=== PATIENT | female | born 1995 ===

== ENCOUNTER 2017-01-11 06:30 | Inpatient (IN) | payer OTHER ==
[2017-01-11] MEDS ORDERED: METHYLERGONOVINE 0.2 MG/ML 1 ML AMP IM PRN (07:35)
[2017-01-11] MEDS ORDERED: CARBOPROST TROMETHAMINE 250 MCG/ML 1 ML AMP IM PRN (07:35)
[2017-01-11] MEDS ORDERED: OXYTOCIN 10 UNIT/ML 1 ML VIAL IM PRN (07:35)
[2017-01-11] MEDS ORDERED: PENICILLIN G POTASSIUM 5,000,000 UNIT in DEXTROSE 5% IN WATER 100 ML IVPB STA ×2 (07:35)
[2017-01-11] MEDS ORDERED: LIDOCAINE 1% (PF) 10 MG/ML (30 ML SDV) SQ PRN (07:35)
[2017-01-11] MEDS ORDERED: TERBUTALINE 1 MG/ML VIAL SQ PRN (07:35)
[2017-01-11] MEDS ORDERED: OXYTOCIN 20 UNITS/1000 ML NS 1,000 ML IV SCH ×2 (07:45→15:15)
[2017-01-11] MEDS ORDERED: LACTATED RINGERS 1,000 ML IV SCH (07:45)
[2017-01-11 07:49] VITALS: BMI 26.2
[2017-01-11 08:10] LABS: Basophils # (A) 0.1 k/uL (0-0.2); Basophils % (A) 0 %; CH 26.5; CHCM 30.9; Eosinophils # (A) 0.1 k/uL (0-0.7); Eosinophils % (A) 1 %; HCT 37.6 % (34.0-46.0); HDW 2.93; HGB 11.5 gm/dL (11.4-16.0); Hypochromasia Moderate; Luc # (Auto) 0.18; Luc % (Auto) 1; Lymphocytes # (A) 1.5 k/uL (1.0-4.8); Lymphocytes % (A) 9 %; MCH 26.3 pg (25.0-35.0); MCHC 30.5 g/dL (31.0-37.0); MCV 86.3 fL (80.0-100.0); Mean Platelet Volume 7.3; Monocytes # (A) 0.6 k/uL (0-1.0); Monocytes % (A) 4 %; Neutrophils # (A) 14.9 k/uL (1.3-7.7); Neutrophils % (A) 86 %; RBC 4.36 m/uL (3.80-5.40); RDW 14.2 % (11.5-15.5); WBC 17.4 k/uL (3.8-10.6); WBC (Perox) 18.04
[2017-01-11 08:51] LABS: Glucose,Whole Blood 107 mg/dL (75-99)
[2017-01-11] MEDS ORDERED: SODIUM CHLORIDE 0.9% 100 ML BAG ONE (09:02)
[2017-01-11] MEDS ORDERED: fentaNYL (PF) 50 MCG/ML 5 ML AMP ONE (09:02)
[2017-01-11] MEDS ORDERED: BUPIVACAINE (PF) 0.25% 30 ML VIAL ONE (09:02)
[2017-01-11 09:12] LABS: Appearance,Urine Clear (Clear); Bacteria,Urine Rare /hpf; Bilirubin,Urine Negative (Negative); Glucose,Urine (UA) Negative (Negative); Ketones,Urine 1+ (Negative); Leukocyte Esterase,Urine Trace (Negative); Mucus,Urine Rare /hpf; Nitrite,Urine Negative (Negative); PH, Urine 6.5 (5.0-8.0); Particle Count 2952; Protein,Urine Trace (Negative); RBC,Urine 42 /hpf (0-5); Specific Gravity,Urine 1.016 (1.001-1.035); Squamous Epithelial Cell,Urine 3 /hpf (0-4); UA Billing (MACRO vs. MICRO) MICRO; Urobilinogen,Urine <2.0 mg/dL (<2.0); WBC,Urine 3 /hpf (0-5)
[2017-01-11] MEDS ORDERED: BUPIVACAINE (PF) 0.25% 25 ML, fentaNYL (PF) 200 MCG in SODIUM CHLORIDE 0.9% 71 ML EPIDURAL ONE (09:20)
--- NOTE | 2017-01-11 10:33 | P.HPOB ---
History of Present Illness H&P Date: 01/11/17 Chief Complaint: Labor This is a 21-year-old 1 para 0 woman who reports an estimated due date of 01/13/2017. She is new to the community and reports having had care in [place]. She presents to labor and delivery triage with increasing contractions. Upon initial evaluation in labor and delivery triage she is 4+ centimeters dilated and actively genoveva. She is therefore admitted in labor. The patient is accompanied by her mother. She reports having recently moved to the community from [place]. She reports having had care there but does not bring records with her. She states she knows she is group B strep positive. She reports having ultrasounds throughout the which were "normal". She currently denies leakage of fluids or vaginal bleeding. She has felt good movement. Jordanian is her second language. Review of Systems Constitutional: Denies chills, Denies fever Cardiovascular: Denies chest pain, Denies shortness of breath Respiratory: Denies cough Gastrointestinal: Denies BRBPR Genitourinary: Denies abnormal vaginal bleeding Integumentary: Denies rash Neurological: Denies headaches, Denies visual changes Hematologic/Lymphatic: Denies easy bleeding, Denies easy bruising Past Medical History Past Medical History: No Reported History History of Any Multi-Drug Resistant Organisms: None Reported Past Surgical History: No Surgical Hx Reported Past Anesthesia/Blood Transfusion Reactions: No Reported Reaction Past Psychological History: No Psychological Hx Reported Smoking Status: Never smoker Past Alcohol Use History: None Reported Past Drug Use History: None Reported - Past Family History Mother Family Medical History: No Reported History Medications and Allergies Home Medications Medication Instructions Recorded Confirmed Type No Known Home Medications [No 01/11/17 01/11/17 History Known Home Medications] Allergies Allergy/AdvReac Type Severity Reaction Status Date / Time No Known Allergies Allergy Verified 01/11/17 07:35 Exam - Vital Signs Vital signs: Vital Signs Temp Pulse Resp BP 01/11/17 07:35 97.9 F 97 16 117/72 Intake and Output 01/10/17 01/11/17 01/11/17 22:59 06:59 14:59 Other: Weight 69.4 kg Patient Weight 01/12/17 06:59 Weight 69.4 kg This is a pleasant female who is currently resting comfortably with an epidural anesthetic in place. Her abdomen is visibly gravid with a fundal height consistent with term . On pelvic examination the cervix is 7 cm dilated with a bulging bag of fluids. Artificial rupture of membranes is undertaken and clear fluid is noted. The vertex is in the -2 station and she is 70% effaced. heart tones are overall reassuring on external monitoring and she is genoveva every 1-3 minutes spontaneously. Results Result Diagrams: 01/11/17 07:48 01/11/17 07:48 Abnormal Lab Results - Last 24 Hours (Table) 01/11/17 01/11/17 01/11/17 Range/Units 07:48 08:37 08:46 WBC 17.4 H (3.8-10.6) k/uL MCHC 30.5 L (31.0-37.0) g/dL Neutrophils # 14.9 H (1.3-7.7) k/uL POC Glucose (mg/dL) 107 H (75-99) mg/dL Urine Protein Trace H (Negative) Urine Ketones 1+ H (Negative) Urine Blood Moderate H (Negative) Ur Leukocyte Esterase Trace H (Negative) Urine RBC 42 H (0-5) /hpf Urine Bacteria Rare H (None) /hpf Urine Mucus Rare H (None) /hpf Assessment and Plan (1) 39 weeks gestation of Current Visit: Yes Status: Acute Code(s): Z3A.39 - 39 WEEKS GESTATION OF SNOMED Code(s): 40770934 (2) GBS (group B Streptococcus carrier), +RV culture, currently Current Visit: Yes Status: Acute Code(s): O99.820 - STREPTOCOCCUS B CARRIER STATE COMPLICATING SNOMED Code(s): 17710075 (3) Spontaneous onset of labor Current Visit: Yes Status: Acute Code(s): CJY7549 - SNOMED Code(s): 02932580 (4) Insufficient care Current Visit: Yes Status: Acute Code(s): O09.30 - SUPRVSN OF PREG W INSUFFICIENT ANTENAT CARE, UNSP TRIMESTER SNOMED Code(s): 0319758073106 Plan: This is a 21-year-old 1 para 0 woman at 39-5/7 weeks gestation who presents in active labor. She has no care or records in the area. She was started on group B strep prophylactic antibiotics per her report of GBS positive. Current labs show blood type A+, antibody screen negative. status is currently reassuring by external monitoring and I anticipate normal spontaneous vaginal delivery.
[2017-01-11] MEDS: PENICILLIN G POTASSIUM 2,500,000 UNIT in DEXTROSE 5% IN WATER 100 ML IVPB SCH ×4 (12:25→17:21)
[2017-01-11] MEDS ORDERED: WITCH HAZEL 1 EACH MED..PAD TOPICAL PRN (15:14)
[2017-01-11] MEDS ORDERED: diphenhydrAMINE 50 MG/ML 1 ML VIAL IVP PRN ×2 (15:14)
[2017-01-11] MEDS ORDERED: LANOLIN CREAM 5 GM TUBE TOPICAL PRN (15:14)
[2017-01-11] MEDS ORDERED: ZOLPIDEM 5 MG TAB PO PRN (15:14)
[2017-01-11] MEDS ORDERED: diphenhydrAMINE 50 MG CAP PO PRN (15:14)
[2017-01-11] MEDS ORDERED: MEASLES-MUMPS-RUBELLA VACC/PF 12,500 UNIT/0.5 ML VIAL SQ ONE (15:14)
[2017-01-11] MEDS ORDERED: diphenhydrAMINE 25 MG CAP PO PRN (15:14)
[2017-01-11] MEDS ORDERED: BENZOCAINE/MENTHOL SPRAY 1 GM/SPRAY AEROSOL TOPICAL PRN (15:14)
[2017-01-11] MEDS ORDERED: SIMETHICONE 80 MG CHEWABLE PO PRN (15:14)
[2017-01-11] MEDS ORDERED: HYDROCORTISONE 2.5% RECTAL CREAM 30 GM TUBE RECTAL PRN (15:14)
[2017-01-11] MEDS ORDERED: ACETAMINOPHEN TAB 325 MG TAB PO PRN (15:14)
--- NOTE | 2017-01-11 15:14 | P.PROBDLV ---
Vaginal Delivery Note - . Vaginal Delivery Note: findings: Male infant in the left occiput anterior position with Apgars of 9 at 1 minute and 9 at 5 minutes weighing 7 lbs. 13 oz., 3530 g. Periurethral laceration, second degree perineal laceration, left vaginal sidewall laceration. Intact, three-vessel cord placenta. EBL 250 mL's. Delivery summary: This is a 21-year-old 1 para 0 woman who presented at 39-5/7 weeks gestation with no care in this area. She was in active labor. Following admission she received group B strep prophylactic antibiotics. She received an epidural anesthetic. She underwent artificial rupture of membranes and clear fluid was noted. This she reached complete cervical dilation without incident and commenced pushing with good maternal effort. She did have some moderate tachycardia in the second stage. When she had pushed to she was repositioned, prepped and draped in the dorsal modified Los position. With additional maternal effort the head delivered from the left occiput anterior position followed rapidly by the anterior and posterior shoulders. The rest the infant was delivered onto the field and the nose and mouth were bulb suctioned. The was placed on the maternal abdomen and the cord was clamped and cut. The was taken to the warmer where Apgars were assigned at 9 at 1 minute and 9 at 5 minutes. Attention was returned to the lacerations. She had a periclitoral and periurethral laceration that actually involved the 12 o'clock position of the urethra. Catheter was placed in the vagina to delineate the orifice of the urethra during the repair with 3-0 Vicryl suture. This area was repaired in an interrupted fashion and hemostasis was noted. The second-degree perineal laceration was repaired in the usual fashion using 3-0 Vicryl suture. Additional vaginal bleeding was noted and the vagina was explored and there was noted to be a left vaginal sidewall laceration. This was repaired in a running fashion with 3-0 Vicryl suture. Hemostasis was then noted. an intact, three- vessel cord placenta was then expressed. The uterus was massaged and was noted to be firm below the level of the umbilicus. She had clear urine in the Jean bag. There was decided to leave this in secondary to concerns for swelling after repair of the urethral laceration. All counts were correct and both mother and infant were doing well post delivery in the room.
[2017-01-11] MEDS: IBUPROFEN 600 MG TAB PO PRN ×2 (16:28→23:00)
[2017-01-11 17:50] LABS: Treponemal Ab Non-Reactive (Non-Reactive)
[2017-01-11] MEDS: SENNOSIDES-DOCUSATE SODIUM 1 EACH TAB PO SCH (20:12)
[2017-01-12 05:57] LABS: Basophils # (A) 0.1 k/uL (0-0.2); Basophils % (A) 0 %; CH 25.7; CHCM 30.6; Eosinophils # (A) 0.2 k/uL (0-0.7); Eosinophils % (A) 1 %; HCT 32.5 % (34.0-46.0); HDW 2.81; HGB 10.2 gm/dL (11.4-16.0); Hypochromasia Moderate; Luc # (Auto) 0.13; Luc % (Auto) 1; Lymphocytes % (A) 11 %; MCH 26.5 pg (25.0-35.0); MCHC 31.4 g/dL (31.0-37.0); MCV 84.4 fL (80.0-100.0); Mean Platelet Volume 8.4; Monocytes % (A) 5 %; Neutrophils # (A) 14.9 k/uL (1.3-7.7); Neutrophils % (A) 82 %; RBC 3.85 m/uL (3.80-5.40); RDW 15.2 % (11.5-15.5); WBC 18.2 k/uL (3.8-10.6); WBC (Perox) 19.46
[2017-01-12] MEDS: SENNOSIDES-DOCUSATE SODIUM 1 EACH TAB PO SCH ×2 (09:28→20:43)
[2017-01-12] MEDS: IBUPROFEN 600 MG TAB PO PRN ×2 (09:28→18:49)
--- NOTE | 2017-01-12 10:16 | P.PNOBGVD ---
Subjective - Subjective Principal diagnosis: day #1 Interval history: Has Jean catheter in for urethral tearing. No blood in the urine. Patient reports: Reports appetite normal, Reports voiding normally, Reports pain well controlled, Reports ambulating normally : doing well Objective - Latest Vital Signs Latest vital signs: Vital Signs Temp Pulse Pulse Resp BP Pulse Ox 01/12/17 04:00 98.4 F 92 16 96/58 96 01/12/17 00:00 97.7 F 86 16 102/64 97 01/11/17 20:00 97.9 F 96 16 112/68 97 01/11/17 17:11 98.1 F 78 14 102/55 01/11/17 16:41 97.9 F 74 14 113/59 01/11/17 15:56 84 14 104/60 01/11/17 15:41 79 14 108/56 01/11/17 15:23 89 14 108/61 01/11/17 15:11 98.1 F 110 H 16 110/72 Intake and Output 01/11/17 01/12/17 01/12/17 22:59 06:59 14:59 Intake Total 1000 Output Total 1100 Balance 1000 -1100 Intake: Intake, IV Titration 1000 Amount Oxytocin 20 Units/1000 ml 1000 Ns 1,000 ml @ Per Protocol IV .Q0M [facility] Rx#: [id number] Output: Urine 1100 Other: Voiding Method Indwelling Catheter - Exam Extremities: Present: normal Abdomen: Present: normal appearance, soft Uterus: Present: normal, firm - Labs Labs: Abnormal Lab Results - Last 24 Hours (Table) 01/12/17 Range/Units 05:49 WBC 18.2 H (3.8-10.6) k/uL Hgb 10.2 L (11.4-16.0) gm/dL Hct 32.5 L (34.0-46.0) % Neutrophils # 14.9 H (1.3-7.7) k/uL Assessment and Plan (1) 39 weeks gestation of Current Visit: Yes Status: Acute Code(s): Z3A.39 - 39 WEEKS GESTATION OF SNOMED Code(s): 41135261 (2) GBS (group B Streptococcus carrier), +RV culture, currently Current Visit: Yes Status: Acute Code(s): O99.820 - STREPTOCOCCUS B CARRIER STATE COMPLICATING SNOMED Code(s): 89630855 (3) Spontaneous onset of labor Current Visit: Yes Status: Acute Code(s): LZH5290 - SNOMED Code(s): 53490334 (4) Insufficient care Current Visit: Yes Status: Acute Code(s): O09.30 - SUPRVSN OF PREG W INSUFFICIENT ANTENAT CARE, UNSP TRIMESTER SNOMED Code(s): 4798556235389 (5) Urethral laceration Current Visit: Yes Status: Acute Code(s): S37.33XA - LACERATION OF URETHRA, INITIAL ENCOUNTER SNOMED Code(s): 489206679 (6) Perineal laceration with delivery, second degree Current Visit: Yes Status: Acute Code(s): O70.1 - SECOND DEGREE PERINEAL LACERATION DURING DELIVERY SNOMED Code(s): 8052127 Plan: day #1 status post normal spontaneous vaginal delivery with a urethral laceration. Jean catheter has been kept in place over night for comfort care, this will be discontinued this morning. She is otherwise recovering well and I anticipate discharge home tomorrow. business services associate consult is pending.
[2017-01-12] MEDS: PENICILLIN G POTASSIUM 2,500,000 UNIT in DEXTROSE 5% IN WATER 100 ML IVPB SCH ×2 (22:57)
[2017-01-13 05:13] VITALS: RESP 18
[2017-01-13] MEDS: SENNOSIDES-DOCUSATE SODIUM 1 EACH TAB PO SCH (09:41)
[2017-01-13] MEDS: IBUPROFEN 600 MG TAB PO PRN (09:41)
[2017-01-13 10:15] VITALS: BP 94/45; PULSE 88; TEMP 97.4
--- NOTE | 2017-01-13 12:19 | P.DS ---
Providers Date of admission: 01/11/17 07:16 Expected date of discharge: 01/13/17 Attending physician: Janette Chapman Primary care physician: Stated None - Discharge Diagnosis(es) (1) 39 weeks gestation of Current Visit: Yes Status: Acute (2) GBS (group B Streptococcus carrier), +RV culture, currently Current Visit: Yes Status: Acute (3) Spontaneous onset of labor Current Visit: Yes Status: Acute (4) Insufficient care Current Visit: Yes Status: Acute (5) Urethral laceration Current Visit: Yes Status: Acute (6) Perineal laceration with delivery, second degree Current Visit: Yes Status: Acute Hospital Course: This is a 21-year-old 1 now para 1 woman who presented at 39+ weeks gestation in spontaneous active labor. She had not received care in this area. She reported she was group B strep positive and had an estimated due date of 01/13/2017. Following admission she received group B strep prophylactic antibiotics. She received an epidural anesthetic. She went on to deliver a liveborn male infant over a second-degree perineal laceration. She also had a urethral laceration which was repaired. She did have a Jean catheter left in overnight secondary to concerns for discomfort and swelling. Her Jean catheter was removed on day #1 and she was able to void spontaneously and without difficulty. She had moderate to heavy lochia. By day #2 she continued to do very well. Her lochia had significantly decreased. She was voiding and passing stool without difficulty. Her vital signs were stable and her physical exam is within normal limits. She was therefore discharged home with routine instructions for care and follow-up. The patient does report she'll be returning to her home state of [place] and will likely not follow-up with me in the period. Her son does have bilateral hydroceles therefore circumcision was not done. I also had concerns regarding lack of certain follow-up for the . Plan - Discharge Summary Discharge Rx Participant: Yes New Discharge Prescriptions: New Ibuprofen [Motrin] 600 mg PO Q6HR PRN #30 tab PRN Reason: Mild Pain Or Fever >= 100.5 Discharge Medication List Ibuprofen [Motrin] 600 mg PO Q6HR PRN #30 tab 01/13/17 [Rx] Follow up Appointment(s)/Referral(s): Janette Chapman MD [STAFF PHYSICIAN] - 6 Weeks Care Plan Goals (MU): Follow-up in the office in 6 weeks . Call with any concerning signs or symptoms including heavy vaginal bleeding, severe abdominal pain, fever greater than 101, swelling or redness of the lower extremities, foul vaginal discharge, or signs of depression. Nothing in the vagina for 6 weeks after delivery, specifically no intercourse. Discharge Disposition: HOME SELF-CARE
== END 2017-01-13 13:57 | disposition home or self-care (01) | DRG 775 ==
LOC: FBPOP 06:30 → 4FBP 07:16
PROVIDERS: ADMIT Obstetrics & Gynecology; ATTEND Obstetrics & Gynecology
PROC: 10E0XZZ Delivery of Products of Conception, External Approach (ICD-10-PCS; principal; 2017-01-11)
PROC: 10907ZC Drainage of Amniotic Fluid, Therapeutic from Products of Conception, Via Natural or Artificial Opening (ICD-10-PCS; 2017-01-11)
PROC: 0KQM0ZZ Repair Perineum Muscle, Open Approach (ICD-10-PCS; 2017-01-11)
PROC: 0TQD0ZZ Repair Urethra, Open Approach (ICD-10-PCS; 2017-01-11)
PROC: 10E0XZZ Delivery of Products of Conception, External Approach (ICD-10-PCS; 2017-01-11)
PROC: 3E0R3NZ Introduction of Analgesics, Hypnotics, Sedatives into Spinal Canal, Percutaneous Approach (ICD-10-PCS; 2017-01-11)
PROC: 00HU33Z Insertion of Infusion Device into Spinal Canal, Percutaneous Approach (ICD-10-PCS; 2017-01-11)
DX: O99.824 Streptococcus B carrier state complicating childbirth (principal); O76 Abnormality in fetal heart rate and rhythm complicating labor and delivery; O71.5 Other obstetric injury to pelvic organs; O70.1 Second degree perineal laceration during delivery; Z37.0 Single live birth; Z3A.39 39 weeks gestation of pregnancy
CPT/HCPCS: 80306; 81001; 82947; 85025; 86762; 86780; 86850; 86900; 86901; 87390; 87491; 87591; 88307

== ENCOUNTER 2020-04-18 22:35 | Inpatient (IN) | payer OTHER ==
[2020-04-19] MEDS ORDERED: CARBOPROST TROMETHAMINE 250 MCG/ML 1 ML AMP IM PRN (00:21)
[2020-04-19] MEDS ORDERED: TERBUTALINE 1 MG/ML VIAL SQ PRN (00:21)
[2020-04-19] MEDS ORDERED: LIDOCAINE 0.5% (PF) 5 MG/ML (50 ML SDV) SQ PRN (00:21)
[2020-04-19] MEDS ORDERED: METHYLERGONOVINE 0.2 MG/ML 1 ML AMP IM PRN (00:21)
[2020-04-19] MEDS ORDERED: OXYTOCIN 10 UNIT/ML 1 ML VIAL IM PRN (00:21)
[2020-04-19] MEDS ORDERED: LACTATED RINGERS 1,000 ML IV SCH (00:30)
[2020-04-19 00:33] LABS: Basophils # (A) 0.1 k/uL (0-0.2); Basophils % (A) 1 %; Eosinophils # (A) 0.4 k/uL (0-0.7); Eosinophils % (A) 2 %; HCT 41.9 % (34.0-46.0); HGB 13.2 gm/dL (11.4-16.0); Lymphocytes # (A) 2.5 k/uL (1.0-4.8); Lymphocytes % (A) 13 %; MCH 26.5 pg (25.0-35.0); MCHC 31.6 g/dL (31.0-37.0); MCV 83.9 fL (80.0-100.0); Mean Platelet Volume 8.1; Monocytes # (A) 0.8 k/uL (0-1.0); Monocytes % (A) 4 %; Neutrophils # (A) 14.9 k/uL (1.3-7.7); Neutrophils % (A) 79 %; Platelet Count 290 k/uL (150-450); RBC 4.99 m/uL (3.80-5.40); WBC 18.8 k/uL (3.8-10.6)
--- NOTE | 2020-04-19 01:02 | P.HPOB ---
History of Present Illness H&P Date: 04/19/20 Chief Complaint: I'm here to have my baby This is a 24-year-old 2 para 1001 EDC 04/12/2020 at 41 weeks gestation. Patient presents to triage stating that she wants to have her baby here. She is from [place], and has had several visits with another production machine operator at [facility]. She is having uterine contractions approximately every 5 minutes apart. Fetus is active. She denies vaginal bleeding or fluid leakage. Past medical history is negative. Past surgical history is negative. Current medications vitamins. ALLERGIES none known. Family history patient states is noncontributory. Social history patient is , nonsmoker, denies alcohol or drug use. She is here with her mother. history blood type A+, rubella status immune. Group B strep cultures negative. Gonorrhea and chlamydia cultures, HIV testing, hepatitis B surface antigen, urine culture, Pap smear all negative. On exam patient is 5 foot 4 inches, 150 pounds, vital signs are stable and she is afebrile. The general physical exam is within normal limits. Cervix is 9 cm dilated, 100% effaced, -1 station, vertex presentation. Artificial amniorrhexis reveals meconium-stained fluid. heart rate is in the 140s with frequent accelerations consistent with reactive NST. Impression: 41 week intrauterine , meconium-stained fluid, limited care at a different production machine operator's office at [facility]. Active labor. Plan: Close maternal and surveillance. Patient is requesting epidural, anesthesia team is aware and on way. Anticipate normal spontaneous vaginal delivery. Review of Systems Constitutional: Reports as per HPI Past Medical History Past Medical History: No Reported History History of Any Multi-Drug Resistant Organisms: None Reported Past Surgical History: No Surgical Hx Reported Past Anesthesia/Blood Transfusion Reactions: No Reported Reaction Past Psychological History: No Psychological Hx Reported Smoking Status: Never smoker Past Alcohol Use History: None Reported Past Drug Use History: None Reported - Past Family History Mother Family Medical History: No Reported History Medications and Allergies Home Medications Medication Instructions Recorded Confirmed Type Ibuprofen [Motrin] 600 mg PO Q6HR PRN #30 tab 01/13/17 Rx Allergies Allergy/AdvReac Type Severity Reaction Status Date / Time No Known Allergies Allergy Verified 04/18/20 22:44 Exam Vital Signs Temp Pulse Resp BP Pulse Ox 02/18/21 00:25 99.9 F H 96 16 102/74 04/18/20 22:45 98.5 F 84 16 118/62 99 04/18/20 22:44 98.5 F 84 16 118/62 99 Intake and Output 04/18/20 04/18/20 04/19/20 14:59 22:59 06:59 Other: Weight 68.039 kg 68.039 kg She dictation under HPI please Results Result Diagrams: 04/19/20 00:23 Abnormal Lab Results - Last 24 Hours (Table) 04/19/20 Range/Units 00:23 WBC 18.8 H (3.8-10.6) k/uL Neutrophils # 14.9 H (1.3-7.7) k/uL Assessment and Plan Assessment: 41 week intrauterine , care elsewhere, active labor, meconium- stained fluid. Plan: Continue close maternal and surveillance. Anticipate normal spontaneous vaginal delivery. Time with Patient: Less than 30
--- NOTE | 2020-04-19 01:11 | P.MSEPDOC ---
Presenting Problems - Arrival Data Date of Arrival on Unit: 04/19/20 Time of Arrival on Unit: 00:18 Mode of Transport: Ambulatory - Complaint OB-Reason for Admission/Chief Complaint: Possible Onset of Labor Comment: contractions since 1899 Medical History - Information : 2 Para: 1 Term: 1 : 0 Abortions: Spontaneous or Elective: 0 Number of Living Children: 1 - Gestational Age Gestational Age by ZURDO (wks/days): 41 Weeks and 0 Days Review of Systems - Review of Systems Constitutional: No problems Breast: No problems ENT: No problems Cardiovascular: No problems Respiratory: No problems Gastrointestinal: No problems Genitourinary: No problems Musculoskeletal: No problems Neurological: No problems Skin: No problems Vital Signs - Temperature Temperature: 99.9 F Temperature Source: Temporal Artery Scan - Pulse Right Brachial Pulse Rate: 96 Pulse Assessment Method: Automatic Cuff - Respirations Respiratory Rate: 16 Oxygen Delivery Method: Room Air - Blood Pressure Right Arm Blood Pressure: 102/74 Blood Pressure Mean: 83 Blood Pressure Source: Automatic Cuff Medical Screen Scoring (Pre) - Cervical Exam Dilation: 4-7 cm = 2 Effacement: More than 50% = 2 Membranes: Intact - Uterine Contractions Frequency: > or = 36 weeks =2 Duration: > 40 seconds = 2 Intensity: N/A - Maternal Vital Signs Maternal Temperature: N/A Signs of Preeclampsia: N/A Maternal Respirations: N/A - Assessment - Baby A Baseline FHR: 135 Heart Rate - NICHD Category: Category I (Normal) = 0 NST: Reactive - Total Score - Baby A Total Score - Baby A: 8 - Total Score - Baby B Total Score - Baby B: 8 - Total Score - Baby C Total Score - Baby C: 8 - Level of Risk - Baby A Level of Risk - Baby A: Medium (6-9) - Level of Risk - Baby B Level of Risk - Baby B: Medium (6-9) - Level of Risk - Baby C Level of Risk - Baby C: Medium (6-9) Physician Notification (Pre) - Physician Notified Physician Notified Date: 04/18/20 Physician Notified Time: 23:10 New Order Received: Yes (recheck in an hour) - Notification Comment Comment: Pt is a DOM moved here a month ago from [place], pt has seen Dr Montoya a few times and is supposed to see her again on Thursday. Pt states she comes here to deliver a baby. Disposition - Disposition OB Disposition: Admit, Triage I agree with the RN Medical Screening Exam: Yes Case reviewed; plan agreed upon as documented in EMR&OBIX.: Yes Diagnosis: LOUSE-BORNE TYPHUS
[2020-04-19] MEDS ORDERED: OXYTOCIN 30 UNITS/500 ML NS 30 UNIT in SALINE 1 500ML.BAG IV SCH (02:03)
[2020-04-19] MEDS ORDERED: ZOLPIDEM 5 MG TAB PO PRN (02:20)
[2020-04-19] MEDS ORDERED: diphenhydrAMINE 50 MG CAP PO PRN (02:20)
[2020-04-19] MEDS ORDERED: ACETAMINOPHEN TAB 325 MG TAB PO PRN (02:20)
[2020-04-19] MEDS ORDERED: diphenhydrAMINE 50 MG/ML 1 ML VIAL IVP PRN ×2 (02:20)
[2020-04-19] MEDS ORDERED: diphenhydrAMINE 25 MG CAP PO PRN (02:20)
[2020-04-19] MEDS ORDERED: LANOLIN CREAM 5 GM TUBE TOPICAL PRN (02:20)
[2020-04-19] MEDS ORDERED: diphenhydrAMINE ELIXIR 25 MG/10 ML CUP PO PRN (02:20)
[2020-04-19] MEDS ORDERED: SIMETHICONE 80 MG CHEWABLE PO PRN (02:20)
[2020-04-19] MEDS ORDERED: IBUPROFEN 600 MG TAB PO PRN (02:20)
[2020-04-19] MEDS ORDERED: HYDROCORTISONE 2.5% RECTAL CREAM 30 GM TUBE RECTAL PRN (02:20)
[2020-04-19] MEDS ORDERED: BENZOCAINE/MENTHOL SPRAY 1 GM/SPRAY AEROSOL TOPICAL PRN (02:20)
--- NOTE | 2020-04-19 02:20 | P.PROBDLV ---
Vaginal Delivery Note - . Vaginal Delivery Note: This is a 24-year-old female 2 para 1001 EDC 04/12/2020 at 41 weeks gestation. Patient presented in active labor, care given elsewhere. Blood type is A+, rubella status immune, group B strep cultures negative. Please see dictated history and physical for details. Artificial amniorrhexis revealed dark meconium-stained fluid. Analgesic options were reviewed and declined. Patient became completely dilated at 0154 hours and began the second stage of labor at that time. The oropharynx, Perineal body was prepped and draped in usual sterile fashion. With good maternal expulsive efforts head delivered occiput anterior and restituted accordingly. There was a nuchal cord 1 that was reduced. The left or anterior shoulder was delivered from underneath the pubic symphysis at which time the oropharynx, nasopharynx, and external nares were bulb suctioned on the perineal body. Patient was officially delivered of a liveborn male at 0201 hrs. Umbilical cord was doubly clamped and ligated, he was handed to waiting nurses for evaluation where scores of 9 and 9 at one and 5 minutes respectively were given. Placenta delivered spontaneously, it was inspected and noted to be intact with trivascular cord, and deeply meconium-stained at 0203 hrs. At this time the uterus was massaged. Careful inspection of the cervix, vagina, periurethral, and perirectal areas revealed a small first-degree periclitoral laceration. This was repaired with 1% lidocaine injection and a single [id number]-ce-rrgar suture of 3-0 repeat. weighed 7 lbs. 8 oz. or 3395 g. All sponge needle and enhancement counts are correct at the end of the procedure. Patient is requesting circumcision for her infant son.
[2020-04-19] MEDS: IBUPROFEN 600 MG TAB PO PRN (12:31)
[2020-04-19] MEDS: SENNOSIDES-DOCUSATE SODIUM 1 EACH TAB PO SCH ×2 (12:32→21:40)
[2020-04-20] MEDS: IBUPROFEN 600 MG TAB PO PRN (01:07)
--- NOTE | 2020-04-20 07:50 | P.DS ---
Providers Date of admission: 04/19/20 00:15 Expected date of discharge: 04/20/20 Attending physician: Sri Cali Primary care physician: Stated None Hospital Course: This is a 24-year-old patient from [facility], 2 para 1001, EDC 04/12/2020 at 41 weeks gestation who presented to our institution in active spontaneous labor. She received care from Dr. Montoya at another institution, records were received and reviewed. is remarkable for blood type A positive, rubella status immune, group B strep cultures negative. Please see dictated history and physical for details. Artificial amniorrhexis revealed thick meconium-stained fluid. Patient went on to deliver vaginally a liveborn male infant with scores of 9 and 9 at one and 5 minutes respectively. There was a nuchal cord 1 that was reduced, a small first-degree perineal laceration, and an estimated blood loss of 300 mL's. Infant weighed 7 lbs. 8 oz. or 3395 g. Please see my dictated delivery note for details. The patient and her are doing well. Circumcision has been performed. Patient is voiding, ambulating, passing flatus without difficulty. Vital signs are stable and she is afebrile. Fundus is firm and in the midline, symmetric and 18 week size. Extremities are negative for edema. Breasts are not engorged, breast-feeding is going well. Patient is judged to be in good condition for discharge home. She will follow-up with her own assistant to the president in 6 weeks. I have reminded her no intercourse, tampons or douching. She will use anno-uin-rcdwdrw Advil or Aleve, or Motrin as needed for pain. She will call with any fevers shakes or chills, foul smelling or copious lochia, with the passage of large blood clots, with any pain not alleviated by [id number]-[id number]-[id number] products, or indeed with any concerns. Assessment: Doing well day #1 Patient Condition at Discharge: Good Plan - Discharge Summary Discharge Rx Participant: No New Discharge Prescriptions: No Action Ibuprofen [Motrin] 600 mg PO Q6HR PRN #30 tab PRN Reason: Mild Pain Or Fever >= 100.5 Discharge Medication List Ibuprofen [Motrin] 600 mg PO Q6HR PRN #30 tab 01/13/17 [Rx] Follow up Appointment(s)/Referral(s): Sri Cali MD [STAFF PHYSICIAN] - 6 Weeks Discharge Disposition: HOME SELF-CARE
[2020-04-20 08:08] VITALS: BP 106/60; PULSE 97; RESP 18; TEMP 97.9
[2020-04-20] MEDS: SENNOSIDES-DOCUSATE SODIUM 1 EACH TAB PO SCH (10:44)
== END 2020-04-20 11:25 | disposition home or self-care (01) | DRG 807 ==
LOC: FBPOP 22:35 → 4FBP 04-19 00:15
PROVIDERS: ADMIT Obstetrics & Gynecology; ATTEND Obstetrics & Gynecology
PROC: 10E0XZZ Delivery of Products of Conception, External Approach (ICD-10-PCS; principal; 2020-04-19)
PROC: 0HQ9XZZ Repair Perineum Skin, External Approach (ICD-10-PCS; 2020-04-19)
PROC: 10907ZC Drainage of Amniotic Fluid, Therapeutic from Products of Conception, Via Natural or Artificial Opening (ICD-10-PCS; 2020-04-19)
DX: O48.0 Post-term pregnancy (principal); Z37.0 Single live birth; Z3A.41 41 weeks gestation of pregnancy; O77.0 Labor and delivery complicated by meconium in amniotic fluid; O70.0 First degree perineal laceration during delivery; O69.81X0 Labor and delivery complicated by cord around neck, without compression, not applicable or unspecified
CPT/HCPCS: 59025; 85025; 99213

== ENCOUNTER 2021-09-03 20:56 | Emergency (ER) | payer OTHER ==
[2021-09-03 21:46] VITALS: BP 102/65; PULSE 67; RESP 18; TEMP 98.2
--- NOTE | 2021-09-03 22:07 | XR ---
EXAMINATION TYPE: XR elbow complete RT DATE OF EXAM: 09/03/2021 COMPARISON: NONE HISTORY: Elbow pain TECHNIQUE: 3 views FINDINGS: I see no fracture nor dislocation. Joint spaces are normal. No sign of elbow joint effusion . IMPRESSION: Negative right elbow exam. No fracture.
--- NOTE | 2021-09-03 22:55 | ED ---
Upper Extremity HPI - General Chief Complaint: Extremity Injury, Upper Stated Complaint: Right Elbow Injury Time Seen by Provider: 09/03/21 22:43 Source: patient, RN notes reviewed, old records reviewed Mode of arrival: ambulatory Limitations: no limitations - History of Present Illness Initial Comments: This is a 25-year-old female to the ER today. She presents today for evaluation of right elbow pain. Patient did have traumatic medic injury to the right elbow traumatic injury was fall while rollerskating. A she is able to move well without significant difficulty. His been going on for 2 days and just is worse with some movements some lifting especially lifting her child or heavy object off the floor. No other trauma. Able to move arm in all directions. No shoulder pain no wrist pain MD Complaint: Injury to:: right, elbow -: days(s) (21) Other Extremity Injury: Elbow: Right Other Injuries: none Handedness: right Place: home Severity scale (1-10): 4 Improves With: none Worsens With: none Context: fall, direct blow Associated Symptoms: denies other symptoms Treatments Prior to Arrival: NSAIDS - Related Data Previous Rx's Medication Instructions Recorded Ibuprofen [Motrin] 600 mg PO Q6HR PRN #30 tab 01/13/17 Allergies Allergy/AdvReac Type Severity Reaction Status Date / Time No Known Allergies Allergy Verified 09/03/21 21:46 Review of Systems ROS Statement: Those systems with pertinent positive or pertinent negative responses have been documented in the HPI. ROS Other: All systems not noted in ROS Statement are negative. Past Medical History Past Medical History: No Reported History History of Any Multi-Drug Resistant Organisms: None Reported Past Surgical History: No Surgical Hx Reported Past Anesthesia/Blood Transfusion Reactions: No Reported Reaction Past Psychological History: No Psychological Hx Reported Smoking Status: Never smoker Past Alcohol Use History: None Reported Past Drug Use History: None Reported - Past Family History Mother Family Medical History: No Reported History General Exam Limitations: no limitations General appearance: alert, in no apparent distress Head exam: Present: atraumatic, normocephalic, normal inspection Eye exam: Present: normal appearance, PERRL, EOMI. Absent: scleral icterus, conjunctival injection, periorbital swelling ENT exam: Present: normal exam, mucous membranes moist Neck exam: Present: normal inspection. Absent: tenderness, meningismus, lymphadenopathy Respiratory exam: Present: normal lung sounds bilaterally. Absent: respiratory distress, wheezes, rales, rhonchi, stridor Cardiovascular Exam: Present: regular rate, normal rhythm, normal heart sounds. Absent: systolic murmur, diastolic murmur, rubs, gallop, clicks GI/Abdominal exam: Present: soft, normal bowel sounds. Absent: distended, tenderness, guarding, rebound, rigid Extremities exam: Present: full ROM, tenderness (Minimal), normal capillary refill. Absent: pedal edema, joint swelling, calf tenderness Back exam: Present: normal inspection Neurological exam: Present: alert, oriented X3, CN II-XII intact Psychiatric exam: Present: normal affect, normal mood Skin exam: Present: warm, dry, intact, normal color. Absent: rash Course Vital Signs 09/03/21 21:43 Temperature 98.2 F Pulse Rate 67 Respiratory 18 Rate Blood Pressure 102/65 O2 Sat by Pulse 100 Oximetry - Reevaluation(s) Reevaluation #1: 09/03/21 22:53 Medical record is reviewed Reevaluation #2: 09/03/21 22:53 Patient informed of results and questions answered Reevaluation #3: 09/03/21 22:53 Patient now requiring anything for pain Medical Decision Making - Medical Decision Making 25 female presents today for evaluation regards elbow pain after fall. No specific dramatic injury is noted patient can be discharged home - Radiology Data Radiology results: report reviewed (X-ray right elbow is negative for acute disease), image reviewed Disposition Clinical Impression: Fall, Contusion of right elbow, Sprain of right elbow Disposition: HOME SELF-CARE Condition: Good Instructions (If sedation given, give patient instructions): Elbow Sprain (ED) Is patient prescribed a controlled substance at d/c from ED?: No Referrals: None,Stated [Primary Care Provider] - 1-2 days
== END 2021-09-03 23:21 | disposition home or self-care (01) ==
LOC: EC 20:56
DX: S53.401A Unspecified sprain of right elbow, initial encounter (principal); V00.128A Other non-in-line roller-skating accident, initial encounter
CPT/HCPCS: 99283

== ENCOUNTER 2024-09-25 07:30 | Inpatient (IN) | payer OTHER ==
[2024-09-25] MEDS ORDERED: CARBOPROST TROMETHAMINE 250 MCG/ML 1 ML AMP IM PRN (08:20)
[2024-09-25] MEDS ORDERED: TRANEXAMIC 1,000 MG/100ML-NACL 1,000 MG in EMPTY BAG 1 BAG IV PRN (08:20)
[2024-09-25] MEDS ORDERED: OXYTOCIN 10 UNIT/ML 1 ML VIAL IM PRN (08:20)
[2024-09-25] MEDS ORDERED: TERBUTALINE 1 MG/ML VIAL SQ PRN (08:20)
[2024-09-25] MEDS ORDERED: LIDOCAINE 0.5% (PF) 5 MG/ML (50 ML SDV) SQ PRN (08:20)
[2024-09-25] MEDS ORDERED: METHYLERGONOVINE 0.2 MG/ML 1 ML AMP IM PRN (08:20)
[2024-09-25] MEDS: LACTATED RINGERS 1,000 ML IV SCH ×2 (08:32→09:28)
[2024-09-25 08:35] LABS: Basophils # (A) 0.04 10*3/uL (0.00-0.10); Basophils % (A) 0.4 %; Eosinophils # (A) 0.10 10*3/uL (0.04-0.35); Eosinophils % (A) 1.0 %; HCT 32.4 % (37.2-46.3); HGB 9.7 g/dL (12.0-15.0); Lymphocytes # (A) 1.61 10*3/uL (0.90-5.00); Lymphocytes % (A) 15.5 %; MCH 21.7 pg (27.0-32.0); MCHC 29.9 g/dL (32.0-37.0); MCV 72.5 fL (80.0-97.0); Monocytes # (A) 0.60 10*3/uL (0.20-1.00); Monocytes % (A) 5.8 %; Neutrophils # (A) 7.94 10*3/uL (1.80-7.70); Neutrophils % (A) 76.4 %; Platelet Count 210 10*3/uL (140-440); RBC 4.47 10*6/uL (4.10-5.20); RDW 18.3 % (11.5-14.5); WBC 10.38 10*3/uL (4.50-10.00)
[2024-09-25] MEDS: OXYTOCIN 30 UNITS/500 ML NS 30 UNIT in SALINE 1 500ML.BAG IV SCH (09:14)
[2024-09-25] MEDS ORDERED: SODIUM CHLORIDE 0.9% 250 ML BAG ONE (09:25)
[2024-09-25] MEDS ORDERED: fentaNYL (PF) 50 MCG/ML 5 ML AMP ONE (09:25)
[2024-09-25] MEDS ORDERED: ROPIVACAINE 5 MG/ML 30 ML VIAL ONE (09:25)
--- NOTE | 2024-09-25 11:48 | P.PROBDLV ---
Vaginal Delivery Note - . Vaginal Delivery Note: Date of service 09/25/2024 Findings viable male delivered at 1135, Apgars of 9 and 9 at 1 and 5 minutes respectively, weight is pending 28-year-old 3 para 2 at 40-4/7 weeks presents in active labor. Patient was admitted to labor and delivery and requested epidural. Epidural was placed without difficulty by the anesthesia department. Patient underwent amniotomy clear fluid was obtained. Contractions were noted to be erratic after the epidural therefore Pitocin augmentation of labor was begun. Patient progressed to complete began pushing and had a normal spontaneous vaginal delivery of a viable male infant at 1135 in occiput posterior presentation, Apgars of 9 and 9 at 1 and 5 minutes respectively. Weight is currently pending. After 2-minute delay the umbilical cord was doubly clamped and cut. Placenta was delivered spontaneously intact with a three-vessel cord being noted. Bladder was drained via red rubber catheter for approximately 200 cc of clear yellow urine. On inspection of the patient's vaginal vault second-degree midline laceration was appreciated this was repaired in the usual fashion with 3-0 Rapide. Uterus was noted to be firm below the umbilicus. All counts were to be correct x 2 at the end of the delivery. Patient and infant tolerated delivery well and are resting comfortably.
[2024-09-25] MEDS ORDERED: LANOLIN CREAM 1 GM TUBE TOPICAL PRN (11:49)
[2024-09-25] MEDS ORDERED: HYDROCORTISONE 2.5% RECTAL CREAM 30 GM TUBE RECTAL PRN (11:49)
[2024-09-25] MEDS ORDERED: diphenhydrAMINE 25 MG CAP PO PRN (11:49)
[2024-09-25] MEDS ORDERED: SIMETHICONE 80 MG CHEWABLE PO PRN (11:49)
[2024-09-25] MEDS ORDERED: diphenhydrAMINE 50 MG/ML 1 ML VIAL IVP PRN ×2 (11:49)
[2024-09-25] MEDS ORDERED: ZOLPIDEM 5 MG TAB PO PRN (11:49)
--- NOTE | 2024-09-25 11:49 | P.HPOB ---
History of Present Illness H&P Date: 09/25/24 Chief Complaint: IUP at 40-4/7 weeks, active labor This is a 28-year-old 3 para 2 at 40-4/7 weeks, estimated due date of 723 based on first trimester ultrasound. Patient has been receiving care in [place]. Patient denies loss of fluid at this time, notes good movement On blood work this patient is a blood type of A additive, rubella status immune, RPR nonreactive, hepatitis B surface antigen nonreactive, HIV nonreactive, group beta strep culture negative on 08/03. Upon review of records patient does have a history of hypothyroidism which has been well-controlled and managed by endocrine, anemia managed by heme. COYOTE HUNTER history 3 para 2 #1. Spontaneous vaginal delivery 2016 male 7 pounds #2 spontaneous vaginal delivery 2020 male around 7 pounds #3 current Review of Systems Constitutional: Denies chills, Denies fatigue, Denies fever Ears, nose, mouth and throat: Denies headache Cardiovascular: Reports leg edema Respiratory: Denies dyspnea Gastrointestinal: Denies constipation, Denies diarrhea, Denies nausea, Denies vomiting Genitourinary: Reports Past Medical History Past Medical History: No Reported History History of Any Multi-Drug Resistant Organisms: None Reported Past Surgical History: No Surgical Hx Reported Past Anesthesia/Blood Transfusion Reactions: No Reported Reaction Smoking Status: Never smoker - Past Family History Mother Family Medical History: No Reported History Medications and Allergies Home Medications Medication Instructions Recorded Confirmed Type Ergocalciferol [Vitamin D2 (1250 1 tab PO DAILY 09/25/24 09/25/24 History Mcg = 78025 Iu)] Ferrous Sulfate [Feosol] 325 mg PO DAILY 09/25/24 09/25/24 History Levothyroxine Sodium [Synthroid] 25 mcg PO DAILY 09/25/24 09/25/24 History Allergies Allergy/AdvReac Type Severity Reaction Status Date / Time No Known Allergies Allergy Verified 09/25/24 07:46 Exam Osteopathic Statement: *. No significant issues noted on an osteopathic structural exam other than those noted in the History and Physical/Consult. Intake and Output 09/24/24 09/25/24 09/25/24 22:59 06:59 14:59 Other: Weight 72.575 kg Targeted physical exam is performed this date General Is well-nourished well- developed female in no acute distress, breathing appears nonlabored, abdomen is gravid, on cervical exam per RN she is 5/90/-1, heart tones are noted to be category 1 and she is genoveva irregularly but they are not graphing well Assessment and Plan (1) Post-dates Current Visit: Yes Status: Acute Code(s): O48.0 - POST-TERM SNOMED Code(s): 34870055 Plan: Admit to labor and delivery Patient desires epidural anesthesia to be notified Amniotomy when appropriate Anticipate spontaneous vaginal delivery
[2024-09-25 11:54] VITALS: RESP 16
[2024-09-25] MEDS ORDERED: OXYTOCIN 30 UNITS/500 ML NS 30 UNIT in SALINE 1 500ML.BAG IV SCH (12:00)
[2024-09-25] MEDS: ACETAMINOPHEN TAB 500 MG TAB PO SCH (12:08)
[2024-09-25] MEDS: IBUPROFEN 800 MG TAB PO SCH (14:33)
[2024-09-25] MEDS: SENNOSIDES-DOCUSATE SODIUM 1 EACH TAB PO SCH (20:18)
[2024-09-26 05:50] LABS: Basophils # (A) 0.06 10*3/uL (0.00-0.10); Basophils % (A) 0.5 %; Eosinophils # (A) 0.07 10*3/uL (0.04-0.35); Eosinophils % (A) 0.6 %; HCT 31.9 % (37.2-46.3); HGB 9.8 g/dL (12.0-15.0); Lymphocytes # (A) 1.86 10*3/uL (0.90-5.00); Lymphocytes % (A) 15.6 %; MCH 22.6 pg (27.0-32.0); MCHC 30.7 g/dL (32.0-37.0); MCV 73.5 fL (80.0-97.0); Monocytes # (A) 0.77 10*3/uL (0.20-1.00); Monocytes % (A) 6.4 %; Neutrophils # (A) 9.07 10*3/uL (1.80-7.70); Neutrophils % (A) 76.0 %; Platelet Count 218 10*3/uL (140-440); RBC 4.34 10*6/uL (4.10-5.20); RDW 18.2 % (11.5-14.5); WBC 11.94 10*3/uL (4.50-10.00)
--- NOTE | 2024-09-26 10:09 | P.DS ---
Providers Date of admission: 09/25/24 08:07 Expected date of discharge: 09/26/24 Attending physician: Ninfa Howe Primary care physician: Stated None - Discharge Diagnosis(es) (1) Post-dates Current Visit: Yes Status: Acute (2) Perineal laceration with delivery, second degree Current Visit: No Status: Acute (3) Spontaneous onset of labor Current Visit: No Status: Acute Hospital Course: This is a 28-year-old 3 now para 3 that presented to labor and delivery yesterday on 09/18/2026 at 40-4/7 weeks in active labor. Patient's due date was based on an 8-week ultrasound. Patient has been receiving routine care in [place]. Patient was visiting her parents this summer and noted contractions to begin around 1 AM. Patient was admitted to labor and delivery after she was noted to be 5 cm. Patient did request epidural soon after admission. Patient underwent amniotomy and clear fluid was obtained. Contractions were noted to space therefore Pitocin augmentation of labor was begun. Patient progressed to complete began pushing and with X maternal effort had a normal spontaneous vaginal delivery of a viable male infant at 1135 and occiput posterior presentation. Patient did sustain a second-degree midline laceration which was repaired in the usual fashion with 3-0 Rapide. Hemostasis was noted after closure. Patient's course has been uneventful. On this day #1 she is ambulating and voiding without difficulty. She is tolerating a regular diet without nausea or vomiting. She states her pain is well-controlled. She denies concerns. She would like discharge home at 24 hours of possible. Patient Condition at Discharge: Good Plan - Discharge Summary Discharge Rx Participant: No New Discharge Prescriptions: No Action Levothyroxine Sodium [Synthroid] 25 mcg PO DAILY Ergocalciferol [Vitamin D2 (1250 Mcg = 34590 Iu)] 1 tab PO DAILY Ferrous Sulfate [Feosol] 325 mg PO DAILY Discharge Medication List Ergocalciferol [Vitamin D2 (1250 Mcg = 03988 Iu)] 1 tab PO DAILY 09/25/24 [History] Ferrous Sulfate [Feosol] 325 mg PO DAILY 09/25/24 [History] Levothyroxine Sodium [Synthroid] 25 mcg PO DAILY 09/25/24 [History] Follow up Appointment(s)/Referral(s): Ninfa Howe DO [Doctor of Osteopathic Medicine] - 11/08/24 11:30 am Patient Instructions/Handouts: Vaginal Delivery (GEN), Vaginal Delivery (DC) Activity/Diet/Wound Care/Special Instructions: No tub baths or intercourse until 6 weeks . [id number] ibuprofen 600 mg or 3 tablets every 6 hours as needed for pain. Routine check with myself or her office in [place] when she returns. Discharge Disposition: HOME SELF-CARE
[2024-09-26 14:43] VITALS: BP 98/63; PULSE 91; TEMP 98.2
== END 2024-09-26 12:15 | disposition home or self-care (01) | DRG 560 ==
LOC: FBPOP 07:30 → 4FBP 08:07
PROVIDERS: ADMIT Obstetrics & Gynecology Obstetrics; ATTEND Obstetrics & Gynecology Obstetrics
PROC: 10E0XZZ Delivery of Products of Conception, External Approach (ICD-10-PCS; principal; 2024-09-25)
PROC: 0KQM0ZZ Repair Perineum Muscle, Open Approach (ICD-10-PCS; principal; 2024-09-25)
DX: O48.0 Post-term pregnancy (principal); O70.1 Second degree perineal laceration during delivery; O99.284 Endocrine, nutritional and metabolic diseases complicating childbirth; O99.02 Anemia complicating childbirth; E03.9 Hypothyroidism, unspecified; Z37.0 Single live birth; Z3A.40 40 weeks gestation of pregnancy; Z79.890 Hormone replacement therapy; Z28.310 Unvaccinated for COVID-19; Z28.21 Immunization not carried out because of patient refusal
CPT/HCPCS: 59025; 85025; 86850; 86900; 86901; 99213